=== PATIENT | male | born 1985 | race Caucasian/White ===

== ENCOUNTER 2024-09-03 09:52 | Emergency (ER) | payer OTHER, SELFPAY ==
--- NOTE | ~2024-09-03 | XR_ITS ---
EXAM/ PROCEDURE: XR hand LT min 3V - 09/03/2024 10:00 CDT HISTORY: 38 years old Male with Laceration and tendon injury COMPARISON: None available TECHNIQUE: Three view(s) FINDINGS/ IMPRESSION: There are no fractures or dislocations.Joint spaces are within normal limits Reviewed, dictated and finalized at location A.
[2024-09-03 09:56] VITALS: BP 151/107; PULSE 115; RESP 18; TEMP 37.1; O2SAT 98
--- NOTE | 2024-09-03 10:08 | ED_ITS ---
HPI - Wound/Laceration General Chief Complaint: Wound/Laceration Stated Complaint: laceration on left hand Time Seen by Provider: 09/03/24 09:55 Source: patient Mode of arrival: ambulatory Limitations: no limitations History of Present Illness HPI narrative: This is a 38-year-old male, with past history of hypertension, who presents to the emergency department with a laceration of the left hand. 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 He denies any other injury. He complains of 2/10 dull pain. He has no other complaints at this time. Related Data Home Medications ?Medication ?Instructions ?Recorded ?Confirmed ?Last Taken ?Type No Home Medications 02/28/19 Unknown History Allergies Allergy/AdvReac Type Severity Reaction Status Date / Time No Known Allergies Allergy Verified 02/28/19 10:56 Review of Systems Review of Systems: All systems reviewed & are unremarkable except as noted in HPI and below ( HPI) PMFSH Past Medical History Medical History Hypertension Surgical History Surgical History No significant past surgical history Family History Family History Other No active medical problems Social History Social History Smoking status: Never smoker Second hand tobacco smoke exposure: No Alcohol intake: never Substance use: never Substance use type: does not use Living arrangements: with family Gender identity (if verbalized by the patient): Male Spiritual care concerns: No Exam Narrative: GENERAL: Well-developed, well-nourished, and in no acute distress. HEAD: Normocephalic, atraumatic. EYES: PERRLA and EOMI. CHEST: Clear to auscultation. No respiratory distress. No wheezes rales or rhonchi HEART: Regular rate and rhythm. No murmur heard. Normal peripheral pulses. EXTREMITIES: There is a 3 cm laceration over the dorsal aspect of the left thumb approximately 1 cm proximal to the PIP. There is no visible bone, though it appears to involve tendon. The patient is unable to extend the 1st phalanx. The patient is able to add duct and flex the thumb and oppose the fifth digit. sensation of the left thumb intact. Capillary refill less than 2 seconds. Pulse ox at 98% on the left thumb. Pulse ox 98% on all other fingers except the 4th (96%). Normal range of motion of all other extremities. No edema. SKIN: Laceration as described above. Skin otherwise warm, dry, no rash. NEURO: Alert and oriented x3. No focal deficit. Moving all 4 limbs spontaneously PSYCH: Normal mood and affect. Course Course Emergency Course: 10:51 - Xray not concerning for fracture, dislocation or retained foreign object. I discussed the patient with plastic surgeon, Dr. Juarez at [facility] who accepts transfer and will evaluate the patient in the ED. The patient was given 2 g of Ancef IV as well as a tetanus vaccination. He is agreeable to transfer. Vital Signs Vital signs: Vital Signs Temperature 98.7 F 09/03/24 09:56 Pulse Rate 115 H 09/03/24 09:56 Respiratory Rate 18 09/03/24 09:56 Blood Pressure 151/107 H 09/03/24 09:56 Pulse Oximetry 98 09/03/24 09:56 Oxygen Delivery Room Air 09/03/24 09:56 Temperature 98.7 F 09/03/24 09:56 Pulse Rate 115 H 09/03/24 09:56 Respiratory Rate 18 09/03/24 09:56 Blood Pressure 151/107 H 09/03/24 09:56 Pulse Oximetry 98 09/03/24 09:56 Oxygen Delivery Room Air 09/03/24 09:56 MDM - Wound/Laceration MDM Narrative Medical decision making narrative: plan: Tetanus vaccination, imaging, pain control IV antibiotics, hand surgery consultation, reassess Differential Diagnosis Differential diagnosis: Likely laceration and other ( extensor tendon laceration, fracture, retained foreign object, other) Discharge Plan Discharge Clinical Impression: Laceration Extensor tendon laceration of finger with open wound Qualifiers: Encounter type: initial encounter Qualified Code(s): S56.429A - Laceration of extensor muscle, fascia and tendon of unspecified finger at forearm level, initial encounter Patient Disposition: Acute Care Hospital Condition: Stable Patient Language: Kinyarwanda Prescriptions: No Action No Home Medications Follow-up/Referrals: Hampden,Tamiko Akers MD [Primary Care Provider] - Time of Disposition: 11:01
[2024-09-03] MEDS: TETANUS,DIPHTHERIA,AC PERTUSSIS ADULT 0.5 ML (ADACEL) IM (10:17)
[2024-09-03] MEDS: ceFAZolin 2 GM/NS 50 ML 2 GM/50 ML BAG IVPB (10:18)
[2024-09-03 11:11] VITALS: BP 144/92; PULSE 89; RESP 20; TEMP 37.1; O2SAT 98
== END 2024-09-03 11:25 | disposition short-term general hospital (02) ==
PROVIDERS: Emergency Provider Preventive Medicine Aerospace Medicine; PCP Internal Medicine
DX: S56.429A Laceration of extensor muscle, fascia and tendon of unspecified finger at forearm level, initial encounter (principal); Z23 Encounter for immunization; I10 Essential (primary) hypertension; W27.8XXA Contact with other nonpowered hand tool, initial encounter; Y99.0 Civilian activity done for income or pay
CPT/HCPCS: 73130; 90471; 90715; 96365; 99284; J0690